=== PATIENT | male | born 1940 | race Caucasian/White ===

== ENCOUNTER 2024-06-30 01:33 | Emergency (ER) | payer MEDICARE, OTHER, SELFPAY ==
[2024-06-30 01:52] VITALS: BP 157/84; PULSE 88; RESP 16; TEMP 37; O2SAT 98; BMI 25.0
[2024-06-30] MEDS: ONDANSETRON 2 MG/ML inj 4 MG IVP (02:01)
--- NOTE | 2024-06-30 02:01 | ED.GENADULT ---
HPI - General Adult General Date Seen: 06/30/24 Chief complaint: Nausea/Vomiting Stated complaint: weak and nauseated Time Seen by Provider: 06/30/24 01:36 Source: patient Mode of arrival: ambulatory Limitations: no limitations History of Present Illness HPI narrative: Patient is an 84-year-old male who is here with his for evaluation of nausea which has been ongoing for 7-10 days. They just drove here from [place], they are moving from the [facility] to an apartment in [place]. He says the symptoms started around the same time that they left [place], he thought initially that it was just that they were on the road and warrant eating very well. His appetite is decreased, he has felt fatigued and generally weak as well. He has not had any vomiting. Denies any chest or abdominal pain. No diarrhea, black or bloody stools. His notes that neither of them have had good sleep for at least a couple of months and been under lot of stress, she wonders if that is contributing to his symptoms. He says he was going to make an appointment with someone in a clinic, though he has not established any way at this time, but decided tonight he just could not take another day of this nausea. He does have a history of heart disease, 1 stent he says probably 25 years ago. He has high cholesterol and hypertension, medications reviewed. He does not smoke or drink. He also notes that he has a history of low sodium, he knows that he is not supposed to drink too much water, so he has been trying to drink Gatorade rather than just water. His says his mouth is felt very dry. Related Data Home Medications ?Medication ?Instructions ?Recorded ?Confirmed amlodipine 5 mg tablet 5 mg PO DAILY 06/30/24 06/30/24 aspirin 81 mg capsule 81 mg PO DAILY 06/30/24 06/30/24 losartan 100 mg tablet (Cozaar) 100 mg PO DAILY 06/30/24 06/30/24 lovastatin 20 mg tablet 20 mg PO DAILY 06/30/24 06/30/24 Allergies Allergy/AdvReac Type Severity Reaction Status Date / Time latex Allergy rash Verified 06/30/24 01:55 Review of Systems Status of ROS: Reports: 10 or more systems reviewed and unremarkable except as noted in History and below [facility] Medical History Pacemaker ?Z95.0 - Presence of cardiac pacemaker (ICD-10) Surgical History H/O right coronary artery stent placement ?Z95.5 - Presence of coronary angioplasty implant and graft (ICD-10) Social History Smoking Status: Never smoker Do you use any of these nicotine containing products: None How often do you have a drink containing alcohol: never AUDIT-C Alcohol total score: 0 Non-prescribed substance use: denies use Exam Narrative: Exam Narrative: Vital signs as noted above. In general, an alert, well-appearing patient. Head: Normocephalic, atraumatic. Eyes: Pupils are equal reactive. Extraocular movements are full. Conjunctivae are normal. ENT: Mucous membranes are moist. Throat is normal. Neck: Supple without lymphadenopathy. Heart: Regular rate and rhythm. No murmur or rub. Lungs: Clear bilaterally. No increased work of breathing, crackles or wheezes. Abdomen: Soft and nontender. No organomegaly. Extremities: Well perfused. No edema. No calf tenderness. Pulses intact. Neurologic: Patient is alert and oriented to person and place. Speech is fluent. Face is symmetric. Moves all extremities equally. Affect: Normal. Skin: Warm and dry. Well perfused. Const: Vital Signs, click to edit/add: Vital Signs - 24 hr 06/30/24 01:52 Temperature 98.6 F Pulse Rate [Pulse Oximeter] 88 Respiratory Rate 16 Blood Pressure [Ri ght Upper Arm] 157/84 H Pulse Oximetry 98 Oxygen Delivery Me thod Room Air Documenting provider has reviewed patient's vital signs: yes Course Course ED Course: Patient presents with continuous nausea for over a week without vomiting, abdominal pain, changes in stools, shortness of breath or chest pain. Diagnostic considerations would include a cardiac etiology for these symptoms although it seems less likely given the continuous nature for over a week. Will evaluate for dehydration, metabolic derangement, infection. Would doubt an acute abdominal process such as bowel obstruction, diverticulitis, colitis, based on absence of symptoms. Will draw labs to assess for possible cholecystitis or pancreatitis although these also seem less likely with the absence of abdominal pain. Zofran for symptomatic relief. He feels improved after Zofran. Labs are notable for hemoglobin of 12.5, white count slightly low at 4.32, platelets are normal. He has a slight monocytosis. Sodium is low 126, he does not know what his baseline is but does tell me that his doctors away said it runs on the low side. His BUN and creatinine are normal, blood sugars 101, magnesium is 2. LFTs are normal, troponin is 0.01. CRP less than 0.5. Lipase is just a touch above normal at 308, of uncertain significance given the absence of any abdominal pain. COVID flu and RSV are negative. I have reviewed all this with the patient and his . I think it is reasonable to let him go home, I do think we should try and raise his sodium a bit, we talked about fluid restriction and I would also have him use salt tablets in the short term. Sodium should be rechecked in clinic early next week. Return any time for worsening weakness, new symptoms such as abdominal pain, vomiting, fevers. Reviewed that if symptoms are persistent as sodium normalizes that additional evaluation as an outpatient may be needed. Vital Signs Vital signs: Initial Vital Signs Temperature 98.6 F 06/30/24 01:52 Temperature Source Temporal Artery Scan 06/30/24 01:52 Pulse Rate 88 06/30/24 01:52 Respiratory Rate 16 06/30/24 01:52 Blood Pressure 157/84 H 06/30/24 01:52 Blood Pressure Mean 108 H 06/30/24 01:52 Blood Pressure Position Sitting 06/30/24 01:52 Pulse Oximetry 98 06/30/24 01:52 Oxygen Delivery Method Room Air 06/30/24 01:52 Vital Signs Temperature 98.6 F 06/30/24 01:52 Pulse Rate 88 06/30/24 01:52 Respiratory Rate 16 06/30/24 01:52 Blood Pressure 157/84 H 06/30/24 01:52 Pulse Oximetry 98 06/30/24 01:52 Oxygen Delivery Method Room Air 06/30/24 01:52 Temperature 98.6 F 06/30/24 01:52 Pulse Rate 88 06/30/24 01:52 Respiratory Rate 16 06/30/24 01:52 Blood Pressure 157/84 H 06/30/24 01:52 Pulse Oximetry 98 06/30/24 01:52 Oxygen Delivery Method Room Air 06/30/24 01:52 Medications Administered Medications: Discontinued Medications Generic Name Dose Route Start Last Admin Trade Name Dannielle PRN Reason Stop Dose Admin Ondansetron HCl 4 mg 06/30/24 01:56 06/30/24 02:01 Ondansetron 2 Mg/Ml Inj IVP 06/30/24 01:57 4 mg ONCE ONE Administration Medical Decision Making Lab Data Labs: Lab Results 06/30/24 06/30/24 06/30/24 Range/Units 01:56 01:57 02:04 WBC 4.32 L (4.50-11.00) K/uL RBC 3.82 L (4.30-5.90) m/uL Hgb 12.4 L (13.5-17.5) gm/dL Hct 35.4 L (37.0-53.0) % MCV 93 (80-100) fL MCH 33 (26-34) pg MCHC 35 (32-36) gm/dL RDW Coeff of Swapna 12.1 (11.5-15.5) % Plt Count 253 (140-440) K/uL Neut % (Auto) 47.7 (42.0-72.0) % Lymph % (Auto) 36.1 (20-44) % [place] % (Auto) 12.7 H (0.0-11.0) % Eos % (Auto) 2.8 (0.0-7.0) % Baso % (Auto) 0.7 (0.0-3.0) % Neut # (Auto) 2.10 (1.7-7.0) K/uL Lymph # (Auto) 1.60 (0.90-2.90) K/uL [place] # (Auto) 0.50 (0.00-0.90) K/UL Eos # (Auto) 0.10 (0.00-0.50) K/uL Baso # (Auto) 0.00 (0.00-0.30) K/uL Abs Immat Gran (auto) 0.00 (0.00-0.30) K/uL Imm/Tot Granulo (auto) 0.0 % Sodium 126 L (135-149) mmol/L Potassium 3.5 L (3.6-5.1) mmol/L Chloride 96 (96-114) mmol/L Carbon Dioxide 20 (20-32) mmol/L Anion Gap 10 (7-15) mEq/L BUN 9 (7-30) mg/dL Creatinine 0.6 (0.5-1.5) mg/dL Estimated Creat Clear 48.69 Estimated GFR 96 ml/min Glucose 101 (60-115) mg/dL Calcium 9.3 (8.4-10.6) mg/dL Magnesium 2.0 Cancelled (1.5-2.6) mg/dL Total Bilirubin 0.7 (0.1-1.5) mg/dL Direct Bilirubin 0.2 (0.0-0.5) mg/dL AST 28 (12-35) U/L ALT 18 (4-50) U/L Alkaline Phosphatase 70 (40-150) U/L Troponin I 0.01 Cancelled (0.01-0.04) ng/mL C-Reactive Protein < 0.5 L (0.5-1.0) mg/dL Total Protein 6.8 (6.0-8.3) g/dL Albumin 4.1 (3.3-5.0) g/dL Lipase 308 H (23-300) U/L SARS-CoV-2 (PCR) Negative SARS-CoV-2 (Negative) Influenza Type A (PCR) Negative PCR FLU A (Negative) Influenza Type B (PCR) Negative PCR FLU B (Negative) RSV (PCR) Negative PCR RSV (Negative) SARS-CoV-2 Ag (Rapid) Negative (Negative) Discharge Plan Discharge Clinical Impression: Nausea, Hyponatremia Patient Disposition: Home, Self-Care Condition: Improved Instructions: Hyponatremia (ED) Additional Instructions: Zofran if needed for nausea. I would recommend getting some salt tablets at the pharmacy and supplementing your diet with these over the next few days. Your sodium should be rechecked at 1 of the local clinics early next week. If you are feeling worse at any time, developed vomiting, abdominal pain, fevers, return to the ER. Prescriptions: No Action aspirin 81 mg capsule 81 mg PO DAILY lovastatin 20 mg tablet 20 mg PO DAILY losartan [Cozaar] 100 mg tablet 100 mg PO DAILY amlodipine 5 mg tablet 5 mg PO DAILY Follow Up/Referrals: Provider,Not a Local [Primary Care Provider] - Stand Alone Forms: [employer] [facility] [employer] Info Instructions
[2024-06-30 02:13] LABS: Basophils Percent Auto 0.7 % (0.0-3.0); Eosinophils Percent Auto 2.8 % (0.0-7.0); Hematocrit 35.4 % (37.0-53.0); Hemoglobin* 12.4 gm/dL (13.5-17.5); Lymphocytes Percent Auto 36.1 % (20-44); Mean Corpuscular HGB Conc 35 gm/dL (32-36); Mean Corpuscular Hemoglobin 33 pg (26-34); Mean Corpuscular Volume 93 fL (80-100); Monocytes Percent Auto 12.7 % (0.0-11.0); Neutrophils Percent Auto 47.7 % (42.0-72.0); Platelet Count* 253 K/uL (140-440); RDW Coefficient of Variation % 12.1 % (11.5-15.5); Red Blood Count 3.82 m/uL (4.30-5.90); White Blood Count* 4.32 K/uL (4.50-11.00)
[2024-06-30 02:18] LABS: Slide Review Reflex No
[2024-06-30 02:30] LABS: Albumin* 4.1 g/dL (3.3-5.0); Chloride* 96 mmol/L (96-114); Sodium* 126 mmol/L (135-149)
[2024-06-30 02:31] LABS: Potassium* 3.5 mmol/L (3.6-5.1)
[2024-06-30 02:32] LABS: Creatinine* 0.6 mg/dL (0.5-1.5); Est. Creatinine Clearance* 48.69; Estimated Glomerular Filt Rate 96 ml/min
[2024-06-30 02:33] LABS: SARS Antigen* Negative (Negative)
[2024-06-30 02:33] LABS: Anion Gap 10 mEq/L (7-15); Aspartate Amino Transferase* 28 U/L (12-35); Bilirubin Direct* 0.2 mg/dL (0.0-0.5); Bilirubin Total* 0.7 mg/dL (0.1-1.5); Carbon Dioxide* 20 mmol/L (20-32); Total Protein* 6.8 g/dL (6.0-8.3)
[2024-06-30 02:34] LABS: Alanine Aminotransferase* 18 U/L (4-50); Alkaline Phosphatase* 70 U/L (40-150); Blood Urea Nitrogen* 9 mg/dL (7-30); Calcium* 9.3 mg/dL (8.4-10.6); Glucose* 101 mg/dL (60-115); Lipase* 308 U/L (23-300)
[2024-06-30 02:45] LABS: Troponin I* 0.01 ng/mL (0.01-0.04)
[2024-06-30 02:46] LABS: C Reactive Protein* < 0.5 mg/dL (0.5-1.0)
[2024-06-30 02:49] LABS: PCR FLU A Negative PCR FLU A (Negative); PCR FLU B Negative PCR FLU B (Negative); PCR RSV Negative PCR RSV (Negative); SARS PCR* Negative SARS-CoV-2 (Negative)
[2024-06-30 03:03] VITALS: BP 145/78; PULSE 82; RESP 16; TEMP 37; O2SAT 98
== END 2024-06-30 03:06 | disposition home or self-care (01) ==
PROVIDERS: Emergency Provider Emergency Medicine
DX: R11.0 Nausea (principal); E87.1 Hypo-osmolality and hyponatremia
CPT/HCPCS: 36415; 80048; 80076; 83690; 83735; 84484; 85025; 86140; 87426; 87631; 93005; 96374; 99284; J2405

== ENCOUNTER 2024-08-24 10:57 | Emergency (ER) | payer MEDICARE, OTHER, SELFPAY ==
[2024-08-24] VITALS (17 sets, daily range): BP systolic 130–148; BP diastolic 70–83; PULSE 73–104; RESP 18; TEMP 36.6; O2SAT 95–97; BMI 24.9
--- NOTE | 2024-08-24 11:53 | CRLHL7_ITS ---
For Patients: As a result of the Century Cures Act, medical imaging exams and procedure reports are released immediately into your electronic medical record. You may view this report before your referring provider. If you have questions, please contact your health care provider. INDICATION: Dizziness. COMPARISON: None. TECHNIQUE: CT of the brain / head without intravenous contrast. Multiplanar axial, coronal, and sagittal reformats were reconstructed. FINDINGS: No intracranial hemorrhage. No acute or subacute cortically based infarct. Similar density at both carotid terminus is and proximal MCAs. Scattered white matter hypodensities may be related to chronic microvascular ischemia. No mass or mass effect. Normal ventricles. No skull fractures. No worrisome focal bone lesion. The mastoids and middle ears are well aerated. Mucosal thickening in both maxillary sinuses. IMPRESSION: No acute appearing intracranial findings. Scattered very mild white matter hypodensities in a pattern typical of microvascular ischemia. Please note that all CT scans at this facility use dose modulation, iterative reconstruction, and/or weight-based dosing when appropriate to reduce radiation dose to as low as reasonably achievable. Dictated by Maria Del Rosario Cage MD @ 08/24/2024 1:56:44 PM (Electronically Signed)
--- NOTE | 2024-08-24 11:53 | CRLHL7_ITS ---
For Patients: As a result of the Century Cures Act, medical imaging exams and procedure reports are released immediately into your electronic medical record. You may view this report before your referring provider. If you have questions, please contact your health care provider. INDICATION: Abdominal pain, nausea, constipation. TECHNIQUE: CT abdomen and pelvis acquired with 71 cc Omnipaque 370 IV contrast. COMPARISON: None. FINDINGS: Lower chest: Minimal left basilar atelectasis. Liver: Normal in size and attenuation. Small hypoattenuating liver lesion in the right hepatic lobe , too small to characterize. Gallbladder and bile ducts: Cholelithiasis without acute cholecystitis. No biliary duct dilatation. Pancreas: No mass or inflammation. Spleen: Normal in size. No masses. Adrenal glands: No suspicious mass. Kidneys: Bilateral kidneys are normal in size with symmetric enhancement. No nephrolithiasis or hydronephrosis. GI tract: No findings of bowel obstruction. Normal appendix. Severe fecal retention throughout the large bowel loops. No localized wall thickening or inflammation. Scattered colonic diverticulosis without diverticulitis. Vasculature: Abdominal aorta is normal in caliber with mild atherosclerotic disease. Lymph nodes: No lymphadenopathy. Peritoneum/Abdominal Wall: No free air or significant free fluid. Postsurgical changes of anterior abdominal wall, likely hernia repair Pelvis: Prostatomegaly. Bones: Moderate multilevel degenerative changes of the spine. No other wedging compression fracture. IMPRESSION: Severe fecal retention. No findings of bowel obstruction or inflammatory changes. Scattered colonic diverticulosis. Please note that all CT scans at this facility use dose modulation, iterative reconstruction, and/or weight-based dosing when appropriate to reduce radiation dose to as low as reasonably achievable. Dictated by Nba Branham MD @ 08/24/2024 2:06:48 PM (Electronically Signed)
[2024-08-24 12:19] LABS: Basophils Absolute Auto 0.02 K/uL (0.00-0.30); Basophils Percent Auto 0.4 % (0.0-3.0); Eosinophils Absolute Auto 0.06 K/uL (0.00-0.50); Eosinophils Percent Auto 1.3 % (0.0-7.0); Hematocrit 39.6 % (37.0-53.0); Hemoglobin* 13.3 gm/dL (13.5-17.5); Immature Granulocytes Abs Auto 0.03 K/uL (0.00-0.30); Immature Granulocytes Pct Auto 0.7 %; Lymphocytes Percent Auto 18.9 % (20-44); Mean Corpuscular HGB Conc 34 gm/dL (32-36); Mean Corpuscular Hemoglobin 32 pg (26-34); Mean Corpuscular Volume 97 fL (80-100); Monocytes Percent Auto 7.5 % (0.0-11.0); Neutrophils Absolute Auto 3.25 K/uL (1.7-7.0); Neutrophils Percent Auto 71.2 % (42.0-72.0); Platelet Count* 245 K/uL (140-440); RDW Coefficient of Variation % 12.1 % (11.5-15.5); White Blood Count* 4.56 K/uL (4.50-11.00)
[2024-08-24 12:24] LABS: Slide Review Reflex No
[2024-08-24 12:26] LABS: Chloride* 100 mmol/L (96-114)
[2024-08-24 12:27] LABS: Potassium* 3.8 mmol/L (3.6-5.1); Sodium* 131 mmol/L (135-149)
[2024-08-24 12:29] LABS: Anion Gap 8 mEq/L (7-15); Aspartate Amino Transferase* 21 U/L (12-35); Bilirubin Total* 0.6 mg/dL (0.1-1.5); Carbon Dioxide* 23 mmol/L (20-32); Creatinine* 0.7 mg/dL (0.5-1.5); Est. Creatinine Clearance* 46.87; Estimated Glomerular Filt Rate 91 ml/min; Magnesium* 2.2 mg/dL (1.5-2.6)
[2024-08-24 12:30] LABS: Alanine Aminotransferase* 16 U/L (4-50); Alkaline Phosphatase* 52 U/L (40-150); Blood Urea Nitrogen* 13 mg/dL (7-30); Calcium* 9.6 mg/dL (8.4-10.6); Glucose* 169 mg/dL (60-115); Total Protein* 6.8 g/dL (6.0-8.3)
--- NOTE | 2024-08-24 12:54 | ED_ITS ---
HPI - General Adult General Date Seen: 08/24/24 Chief complaint: Dizziness/Vertigo Stated complaint: dizzy/faint/weak Time Seen by Provider: 08/24/24 11:37 Source: patient Mode of arrival: ambulatory Limitations: no limitations History of Present Illness HPI narrative: Patient is a an 84-year-old male presenting to emergency department after episode of dizziness and lightheadedness that occurred this morning. States this is a chronic issue for him but seemed much worse this morning. Has since resolved and now back to his baseline. States that time was feeling very woozy like he was going to pass out. Denies feeling like the room was spinning. Also has been having issues with chronic nausea for the past 2 months. States symptoms started while they were on their drive from [place] to move to [place]. Has a work with his primary care provider for it and has been using home nausea medicine without much help. Is not had any associated vomiting. His primary care provider has talked about doing of EGD. Has not had any other imaging done yet. Denies fevers, chills, chest pain, shortness of breath, weakness, numbness, headache, vision changes. Does state he has a history of a low sodium and was concerned it could be low again. Is also complaining about constipation. States he usually goes every morning but now has not gone for 3 days. Related Data Home Medications ?Medication ?Instructions ?Recorded ?Confirmed amlodipine 5 mg tablet 5 mg PO DAILY 06/30/24 08/24/24 aspirin 81 mg capsule 81 mg PO DAILY 06/30/24 08/24/24 losartan 100 mg tablet (Cozaar) 100 mg PO DAILY 06/30/24 08/24/24 lovastatin 20 mg tablet 20 mg PO DAILY 06/30/24 08/24/24 azelastine 137 mcg (0.1 %) nasal 1 spray intranasal BID 08/24/24 08/24/24 spray ipratropium bromide 21 mcg (0.03 2 spray intranasal 3XD 08/24/24 08/24/24 %) nasal spray omeprazole 20 mg capsule,delayed 20 mg PO DAILY 08/24/24 08/24/24 release ondansetron 4 mg disintegrating 4 mg PO Q8H PRN nausea/vomiting 08/24/24 08/24/24 tablet polyethylene glycol 3350 17 g PO 08/24/24 gram/dose oral powder travoprost 0.004 % eye drops drp ophthalmic (eye) 08/24/24 Allergies Allergy/AdvReac Type Severity Reaction Status Date / Time latex Allergy rash Verified 08/24/24 13:41 Review of Systems Status of ROS: Reports: 10 or more systems reviewed and unremarkable except as noted in History and below [facility] Medical History Pacemaker ?Z95.0 - Presence of cardiac pacemaker (ICD-10) Surgical History H/O right coronary artery stent placement ?Z95.5 - Presence of coronary angioplasty implant and graft (ICD-10) Social History Smoking Status: Never smoker Do you use any of these nicotine containing products: None How often do you have a drink containing alcohol: never AUDIT-C Alcohol total score: 0 Non-prescribed substance use: denies use Exam Narrative: Exam Narrative: Const: Well-nourished, Well-developed, in mild distress Eyes: PERRL, no conjunctival injection, and symmetrical lids HENT: Atraumatic external nose and ears. Moist mucous membranes. Neck: Symmetric, trachea midline, No thyromegaly. CVS: RRR, No murmurs or gallops. Peripheral pulses 2+ and equal in all extremities RESP: Unlabored respiratory effort. Clear to auscultation bilaterally. GI: Nontender/Nondistended, No rebound or guarding. MSK:Extremities w/o deformity, Normal Active ROM Skin: Warm, Dry. No rashes or lesions. Neuro: Normal Muscle tone, No focal neurological deficits. Psych: Awake, Alert, & Oriented x3. Appropriate mood and affect. Const: Vital Signs, click to edit/add: Vital Signs - 24 hr 08/24/24 11:27 08/24/24 11:38 08/24/24 11:45 Temperature 97.8 F Pulse Rate 86 85 Pulse Rate [Pulse Oximeter] 95 Respiratory Rate 18 Blood Pressure Blood Pressure [Le ft Upper Arm] 148/74 H Pulse Oximetry 97 96 97 Oxygen Delivery Me thod Room Air 08/24/24 12:00 08/24/24 12:02 08/24/24 12:15 Temperature Pulse Rate 87 87 78 Pulse Rate [Pulse Oximeter] Respiratory Rate Blood Pressure 142/73 H Blood Pressure [Le ft Upper Arm] Pulse Oximetry 97 97 97 Oxygen Delivery Me thod 08/24/24 12:30 08/24/24 12:32 08/24/24 12:45 Temperature Pulse Rate 77 73 78 Pulse Rate [Pulse Oximeter] Respiratory Rate Blood Pressure 130/70 Blood Pressure [Le ft Upper Arm] Pulse Oximetry 96 95 95 Oxygen Delivery Me thod 08/24/24 13:00 08/24/24 13:02 08/24/24 13:15 Temperature Pulse Rate 78 79 87 Pulse Rate [Pulse Oximeter] Respiratory Rate Blood Pressure 132/77 Blood Pressure [Le ft Upper Arm] Pulse Oximetry 97 97 97 Oxygen Delivery Me thod 08/24/24 13:33 08/24/24 13:34 08/24/24 13:45 Temperature Pulse Rate 104 H 99 77 Pulse Rate [Pulse Oximeter] Respiratory Rate Blood Pressure 140/83 H Blood Pressure [Le ft Upper Arm] Pulse Oximetry 95 97 96 Oxygen Delivery Me thod 08/24/24 14:00 Temperature Pulse Rate 74 Pulse Rate [Pulse Oximeter] Respiratory Rate Blood Pressure Blood Pressure [Le ft Upper Arm] Pulse Oximetry 97 Oxygen Delivery Me thod Course Vital Signs Vital signs: Initial Vital Signs Temperature 97.8 F 08/24/24 11:27 Temperature Source Temporal Artery Scan 08/24/24 11:27 Pulse Rate 95 08/24/24 11:27 Respiratory Rate 18 08/24/24 11:27 Blood Pressure 148/74 H 08/24/24 11:27 Blood Pressure Mean 98 08/24/24 11:27 Blood Pressure Position High-Fowlers 08/24/24 11:27 Pulse Oximetry 97 08/24/24 11:27 Oxygen Delivery Method Room Air 08/24/24 11:27 Vital Signs Temperature 97.8 F 08/24/24 11:27 Pulse Rate 95 08/24/24 11:27 Respiratory Rate 18 08/24/24 11:27 Blood Pressure 148/74 H 08/24/24 11:27 Pulse Oximetry 97 08/24/24 11:27 Oxygen Delivery Method Room Air 08/24/24 11:27 Temperature 97.8 F 08/24/24 11:27 Pulse Rate 74 08/24/24 14:00 Respiratory Rate 18 08/24/24 11:27 Blood Pressure 140/83 H 08/24/24 13:33 Pulse Oximetry 97 08/24/24 14:00 Oxygen Delivery Method Room Air 08/24/24 11:27 Medical Decision Making MDM Narrative Medical decision making narrative: Patient is an 84-year-old male presenting for lightheadedness. Considering he is also having chronic nausea I will do a head CT as there is could be is signs of intracranial abnormality. Will also order a CBC, CMP, magnesium, EKG, troponin to rule out any cardiac issues or electrolyte issues. For his nausea and constipation order CT scan with IV contrast. Lab work shows no concerning findings. His sodium slightly low at 131 by unlikely to be causing his symptoms. EKG and troponin showed no concerning findings. Do not believe repeat troponin is necessary as this lightheadedness occurred early this morning and is now back to his baseline. I do not believe further evaluation is necessary. He is ambulating well. On my review vital signs are stable throughout time in in the emergency department. Oximetry stayed in the mid to high 90s. sign fabricator showed no concerning arrhythmias. Head CT shows no acute concerning abnormalities. CT scan abdomen pelvis shows severe constipation. I spoke to the patient about this and his . I will give him a bowel cleanout regimen. Also informed him to start taking stool softeners regularly after that. He is agreeable to this plan. Lab Data Labs: Lab Results 08/24/24 08/24/24 Range/Units 11:54 12:05 WBC 4.56 (4.50-11.00) K/uL RBC 4.10 L (4.30-5.90) m/uL Hgb 13.3 L (13.5-17.5) gm/dL Hct 39.6 (37.0-53.0) % MCV 97 (80-100) fL MCH 32 (26-34) pg MCHC 34 (32-36) gm/dL RDW Coeff of Swapna 12.1 (11.5-15.5) % Plt Count 245 (140-440) K/uL Neut % (Auto) 71.2 (42.0-72.0) % Lymph % (Auto) 18.9 L (20-44) % [place] % (Auto) 7.5 (0.0-11.0) % Eos % (Auto) 1.3 (0.0-7.0) % Baso % (Auto) 0.4 (0.0-3.0) % Neut # (Auto) 3.25 (1.7-7.0) K/uL Lymph # (Auto) 0.90 (0.90-2.90) K/uL [place] # (Auto) 0.30 (0.00-0.90) K/UL Eos # (Auto) 0.06 (0.00-0.50) K/uL Baso # (Auto) 0.02 (0.00-0.30) K/uL Abs Immat Gran (auto) 0.03 (0.00-0.30) K/uL Imm/Tot Granulo (auto) 0.7 % Sodium 131 L (135-149) mmol/L Potassium 3.8 (3.6-5.1) mmol/L Chloride 100 (96-114) mmol/L Carbon Dioxide 23 (20-32) mmol/L Anion Gap 8 (7-15) mEq/L BUN 13 (7-30) mg/dL Creatinine 0.7 (0.5-1.5) mg/dL Estimated Creat Clear 46.87 Estimated GFR 91 ml/min Glucose 169 H (60-115) mg/dL Calcium 9.6 (8.4-10.6) mg/dL Magnesium 2.2 (1.5-2.6) mg/dL Total Bilirubin 0.6 (0.1-1.5) mg/dL AST 21 (12-35) U/L ALT 16 (4-50) U/L Alkaline Phosphatase 52 (40-150) U/L Total Protein 6.8 (6.0-8.3) g/dL Albumin 4.0 (3.3-5.0) g/dL POC Troponin I 0.00 L (0.01-0.04) ng/ml Imaging Data CT scan - head: Attestation: I have reviewed the pertinent imaging results. Radiologist's impression: No acute appearing intracranial findings. Scattered very mild white matter hypodensities in a pattern typical of microvascular ischemia. Please note that all CT scans at this facility use dose modulation, iterative reconstruction, and/or weight-based dosing when appropriate to reduce radiation dose to as low as reasonably achievable. Dictated by Maria Del Rosario Cage MD @ 08/24/2024 1:56:44 PM (Electronically Signed) CT scan abdomen pelvis: Radiologist's impression: Severe fecal retention. No findings of bowel obstruction or inflammatory changes. Scattered colonic diverticulosis. Please note that all CT scans at this facility use dose modulation, iterative reconstruction, and/or weight-based dosing when appropriate to reduce radiation dose to as low as reasonably achievable. Dictated by Nba Branham MD @ 08/24/2024 2:06:48 PM ECG Data Attestation: I personally reviewed and interpreted this ECG as follows: Prior ECG tracings: available for review Interpretation: Ventricular paced rhythm with a rate of he 2 beats per minute, normal intervals, normal axis, no ST or T-wave abnormalities. Appears similar previous EKG on file. Discharge Plan Discharge Clinical Impression: Constipation Qualifiers: Constipation type: unspecified constipation type Qualified Code(s): K59.00 - Constipation, unspecified Patient Disposition: Home, Self-Care Condition: Stable Instructions: Constipation (DC) Additional Instructions: Follow the bowel cleanout regimen provided. Continue to take stool softeners at home until he began to have regular bowel movements. ?2 - Bisacodyl tablets (Dulcolax? laxative NOT Dulcolax? stool softener) each tablet contains 5 mg of bisacodyl ?1 - 8.3 ounce bottle of Polyethylene Glycol (PEG) 3350 Powder (MiraLAX, SmoothLAX, ClearLAX or generic equivalent) 64 oz. Gatorade? (No red colored flavors) Regular Gatorade?, Gatorade G2?, Powerade?, Powerade Zero?, Pedialyte or Propel?, Liquid IV, and other electrolyte beverages are acceptable. Red flavors are not allowed; all other colors (yellow, green, orange, purple, blue) are okay. It is also okay to buy two 2.12 oz packets of powdered Gatorade that can be mixed with water to a total volume of 64 oz of liquid. ? Simethicone 80 mg or 125 mg tablets, chewables, or softgels -Simethicone is available over the counter in a variety of forms and dosages. Capsules, chewable tablets, and liquid are all acceptable forms. - If you are buying 125 mg tablets, purchase enough simethicone to take 2 tablets. -If you are buying 80 mg tablets, purchase enough to take 3 tablets. ?1 - 10 oz. bottle Magnesium Citrate (No red colored flavors) It is also okay for you to use a 0.5 ounce package of powdered magnesium citrate (17 grams) mixed with 10 ounces of water. ?Tomorrow begin Clear Liquid Diet (clear liquids include things you can see through). Examples of a clear liquid diet include: water, clear broth or bouillon (gluten free options available), Gatorade, Pedialyte or Powerade, carbonated and non-carbonated soft drinks (Sprite, 7-Up, Gingerale), strained fruit juices without pulp (apple, white grape, white cranberry), Jell-O, popsicles, and up to one cup of black coffee or tea (no milk or cream) each day. The following are not allowed on a clear liquid diet: red liquids, alcoholic beverages, dairy products, protein shakes, cream broths, juice with pulp, products containing oil and chewing tobacco. For additional details on following a clear liquid diet, please see https://www.[employer].com/conditions/hqiiw-dfvfkl-lqoq ?Take 2 Bisacodyl (Dulcolax) tablets ?4-6 hour later Drink Miralax ? Gatorade preparation Mix 1 bottle of Miralax with 64 oz. of Gatorade in a large pitcher. Drink 1 - 8 oz. glass of the Miralax/Gatorade solution. Continue drinking 1 - 8 oz. glass every 15 minutes thereafter until the mixture is gone With the last glass of Miralax ? Gatorade solution: take 240-250 mg of simethicone. -Simethicone is available over the counter in a variety of forms and dosages. Capsules, chewable tablets, and liquid are all acceptable forms. -Take enough of the medication to total between 240-250 mg. For example, if you have -125 mg chewable tablets, take 2 tablets to total 250 mg. -80 mg tablets, take 3 tablets to total 240 mg. ?The next day take 10 ounces of magnesium citrate Prescriptions: No Action aspirin 81 mg capsule 81 mg PO DAILY lovastatin 20 mg tablet 20 mg PO DAILY losartan [Cozaar] 100 mg tablet 100 mg PO DAILY amlodipine 5 mg tablet 5 mg PO DAILY travoprost 0.004 % drops ophthalmic (eye) omeprazole 20 mg capsule,delayed release(DR/EC) 20 mg PO DAILY azelastine 137 mcg (0.1 %) spray,non-aerosol 1 spray INTRANASAL BID polyethylene glycol 3350 17 gram/dose powder PO ondansetron 4 mg tablet,disintegrating 4 mg PO Q8H PRN (Reason: nausea/vomiting) ipratropium bromide 21 mcg (0.03 %) spray,non-aerosol 2 spray INTRANASAL 3XD Follow Up/Referrals: NASRIN BUCKLEY DO [Primary Care Provider] - Stand Alone Forms: [facility] Info Instructions
== END 2024-08-24 14:36 | disposition home or self-care (01) ==
PROVIDERS: Emergency Provider Student in an Organized Health Care Education/Training Program; PCP Student in an Organized Health Care Education/Training Program
DX: R42 Dizziness and giddiness (principal); K59.00 Constipation, unspecified
CPT/HCPCS: 36415; 70450; 74177; 80053; 83735; 84484; 85025; 93005; 99284; 99285; Q9967

== ENCOUNTER 2024-08-31 12:44 | Outpatient (CLI) | payer MEDICARE, OTHER, SELFPAY ==
--- NOTE | 2024-08-31 14:22 | P.ANES_ITS ---
Anesthesia Charges Start Date/Time Anesthesia Start Date: 08/31/24 Anesthesia Start Time: 14:01 Stop Date/Time Anesthesia Stop Date: 08/31/24 Anesthesia Stop Time: 14:20 Summary Extremes of Age - Over 70 or under 1: RISK MANAGEMENT DIRECTOR
== END 2024-08-31 12:45 | disposition home or self-care (01) ==
LOC: OP CLINIC 12:45
PROVIDERS: PCP Student in an Organized Health Care Education/Training Program; Visit Provider Internal Medicine Gastroenterology
DX: R11.2 Nausea with vomiting, unspecified (principal)
CPT/HCPCS: 00731; 43239; 88305; 99100; J2704; J3010

== ENCOUNTER 2025-03-04 10:45 | Emergency (ER) | payer OTHER, SELFPAY ==
[2025-03-04] VITALS (11 sets, daily range): BP systolic 140–152; BP diastolic 74–88; PULSE 71–79; RESP 9–21; TEMP 36.4; O2SAT 96–98; BMI 22.8
--- OUTSIDE RECORDS SUMMARY | 2025-03-04 10:50 | XMS_ITS | Clinical Summary ---
Author Organization [facility] Address [address] [place], [place] [address]. [place] [address] Care Team Providers Care Wholesale Representative Name Role Phone No Ref-Primary, Physician Primary Care Provider Social History Tobacco Use Types Packs/Day Years Used Date Smoking Tobacco: Never Assessed Sex and Gender Information Value Date Recorded Sex Assigned at Not on file Legal Sex Male 3:37 PM CDT Gender Identity Not on file Sexual Orientation Not on file Plan of Treatment Health Maintenance Due Date Last Done Comments ADVANCE CARE PLANNING 1941 ANNUAL REVIEW OF HM ORDERS 1941 FALL RISK ASSESSMENT 2006 PNEUMOCOCCAL VACCINE 50+ YEARS (2 of 2 - PPSV23) 09/02/2015 09/02/2014 RSV VACCINE (1 - 1-dose 75+ series) 2016 DTAP/TDAP/TD VACCINE (2 - Td or Tdap) 08/29/2022 08/29/2012, 01/29/1991 PHQ-2 (once per calendar year) 2024 COVID-19 VACCINE (2 - 2023-2 5 season) 2025 07/23/2024 INFLUENZA VACCINE (#1) 2025 , 06/15/2004 MEDICARE ANNUAL WELLNESS VISIT 08/01/2025 08/01/2024 ZOSTER VACCINE Completed 04/29/2019, 02/26/2019 HPV VACCINE Aged Out No longer eligi ble based on patient's age to complete this topic MENINGITIS VACCINE Aged Out No longer eligible based on patient's age to complete this topic Insurance [employer] Member Subscriber Plan / Payer (Ef fective 2024-Present) Name:Arnaldo Chappell Relation to Subscriber:Self Name:Arnaldo Chappell Payer ID:[id number] (NAIC) Type:[employer] Address: [address] [place] [id number] [employer] Care Teams Wholesale Representative Relationship Specialty Start Date End Date No Ref-Primary, Physician PCP - General 11/27/24
--- OUTSIDE RECORDS SUMMARY | 2025-03-04 10:50 | XMS_ITS | Clinical Summary ---
Author Organization [email or web address] Address [address] [place] [id number] Care Team Providers Care Robotics Engineer Name Role Phone Kang Gutierrez DO Primary Care Provider [phone] Allergies Active Allergy Reactions Criticality Noted Date Comments Latex Rash Medium 07/10/2024 Medications amLODIPine (NORVASC) 5 mg tablet Take 1 Tablet (5 mg) by mouth once daily. 07/02/20 24 Active losartan (COZAAR) 100 mg tablet Take 1 Tablet (100 mg) by mouth once daily. 07/02/20 24 Active aspirin chewable 81 mg chewable tablet Chew 1 Tablet (81 mg) by mouth once daily with a meal. 07/02/20 24 Active travoprost 0.004% (TRAVATAN Z) 0.004 % ophthalmic solution 1 Drop at bedtime. Active nystatin 100,000 unit/g ointment Apply topically to affected area(s) continuous as needed. Active clobetasol (TEMOVATE) 0.05 % ointment 10/10/19 24 Active polyethylene glycoL (MIRALAX) 17 gram/scoop powderIndicati ons:Constipati on, acute Mix 1 scoop (17 g) in liquid then take by mouth once daily if needed for Constipation. 510 g 3 08/01/20 24 Active ondansetron (ZOFRAN) 8 mg tabletIndicati ons:Nausea Take 1 Tablet (8 mg) by mouth every 8 hours if needed for Nausea/Vomiti ng. 30 Tablet 08/28/20 24 Active sennosides (SENNA) 8.6 mg tabletIndicati ons:Constipati on, acute Take 1 Tablet (8.6 mg) by mouth two times daily. 180 Tablet 3 08/30/19 25 Active promethazine (PHENERGAN) 25 mg tabletIndicati ons:Nausea and vomiting, unspecified vomiting type TAKE 1 TABLET (25 MG) BY MOUTH EVERY 6 HOURS IF NEEDED FOR NAUSEA/VOMITI NG. 30 Tablet 11/13/19 25 Active nitroglycerin 0.4 mg sublingual tabletIndicati ons:CAD in [place] artery,Bicuspi d aortic valve Place 1 Tablet (0.4 mg) under the tongue every 5 minutes if needed for Chest Pain. Up to 3 tablets in 15 minutes. 20 Tablet 11/21/19 25 Active gabapentin 100 mg capsuleIndicat ions:Nausea and vomiting, unspecified vomiting type TAKE 1 CAPSULE (100 MG) BY MOUTH FOUR TIMES DAILY. 120 Capsule 02/22/20 25 Active lovastatin 20 mg tabletIndicati ons:CAD in [place] artery Take 1 Tablet (20 mg) by mouth at bedtime. 90 Tablet 3 02/26/20 25 Active lovastatin (MEVACOR) 20 mg tablet Take 1 Tablet (20 mg) by mouth at bedtime. 07/02/20 24 025 Discontinued(Re order (E-cancel not sent)) gabapentin 100 mg capsuleIndicat ions:Nausea and vomiting, unspecified vomiting type TAKE 1 CAPSULE (100 MG) BY MOUTH FOUR TIMES DAILY. 120 Capsule 01/23/20 25 025 Discontinued Active Problems Problem Noted Date Diagnosed Date Primary hypertension 07/02/2024 CAD in [place] artery 07/02/2024 Overview (07/02/2024): 1 stent about 25 years ago. Right coronary artery stent. HLD (hyperlipidemia) 07/02/2024 Pacemaker 07/02/2024 Bradycardia 07/02/2024 Encounters Date Type Department Care Team Description 02/20/2025 Refill [facility] [address] [place] [address] Kang Gutierrez, Refill Request (Gabapentin) 01/21/2025 Refill [facility] [address] [place] [address] Kang Gutierrez DO Refill Request (Gabapentin) 12/21/2024 Refill [facility] [address] [place] [address] Kang Gutierrez, DO Refill Request (Gabapentin) from Last 3 Months Immunizations Immunization Administration Dates Next Due COVID-19 VACCINE SPIKEVAX (M ODERNA 50MCG/0.5ML) 12YO+ PFS 07/23/2024 Influenza, IIV3 (Age >=3 years) 06/15/2004 Influenza, Inactivated AIIV4 (Age 65+ Years) Preserv Free 05/06/2024 Pneumococcal conj 13-Valent (Prevnar 13) 015 RSV, Bivalent Vaccine Recons tituted (Abrysvo 120MCG/0.5mL) 06/24/2023 Td (Age >=7 Years) 01/29/1991 Tdap 08/29/2012 Zoster (Shingrix-RZV, recombinant) 04/29/2019, Social History Tobacco Use Types Packs/Day Years Used Date Smoking Tobacco: Never Smokeless Tobacco: Never Tobacco Cessation:Counseling Given: Yes Alcohol Use Standard Drinks/Week Comments Yes 0 (1 standard drink = 0.6 oz pure alcohol) moderate - 3 beers / wine weekly PHQ-2 Answer Date Recorded PHQ-2 TOTAL SCORE 0 08/01/2024 Social Connections Answer Date Recorded Do you often feel lonely or isolated from those around you? 0 07/02/2024 Financial Resource Strain Answer Date R ecorded Difficulty of Paying Living Expenses 3 07/02/2024 Difficulty of Paying Living Expenses Not on file 07/02/2024 Food Insecurity Answer Date Recorded Do you worry your food will run out before you are able to buy more? 1 07/02/2024 Transportation Needs Answer Date Record ed Does lack of transportation keep you from medica l appointments? 1 07/02/2024 Does lack of transportation keep you from work, meetings or getting things that you need? 1 07/02/2024 Housing Stability Answer Date Recorded What is your housing situation today? 1 07/02/2024 Utilities Answer Date Recorded Do you have trouble paying f or utilities (for example, heat, electricity, water, phone)? 1 07/02/2024 Sex and Gender Information Value Date Recorded Sex Assigned at Not on file Legal Sex Male 7:32 AM DIRECTOR UNDERWRITER SALES Gender Identity Not on file Sexual Orientation Not on file Obstetrics History Last Filed Vital Signs Vital Sign Reading Time Taken Comments Blood Pressure 127/70 11/13/2024 11:00 AM CDT Pulse 71 11/13/2024 11:00 AM CDT Temperature 36.4 C (97.5 F) 11/13/2024 10:31 AM CDT Respiratory Rate 16 11/13/2024 11:15 AM CDT Oxygen Saturation 96% 11/13/2024 11:00 AM CDT Inhaled Oxygen Concentration - - Weight 64 kg (141 lb 3.2 oz) 11/05/2024 1:24 PM CDT Height 164.3 cm (5' 4.69) 08/01/2024 11:[address] Body Mass Index 23.73 08/01/2024 11:13 AM DIRECTOR UNDERWRITER SALES Plan of Treatment Upcoming Encounters Date Type Department Care Team (Late st Contact Info) Description 03/13/2025 Cardiac Device Check [facility] [place] [phone] Health Maintenance Due Date Last Done Comments Pneumococcal series for age 50+ (2 of 2 - PPSV23) 10/28/2014 09/02/2014 Tetanus booster 08/29/2022 08/29/2012, 01/29/1991 COVID-19 vaccine series ( season) 2025 07/23/2024 Influenza Vaccine (#1) 2025 , 06/15/2004 BMI (ht and wt on same day) for age 18+ 08/01/2025 08/01/2024 Depression screening for age 12+ 08/01/2025 08/01/2024, 08/01/2024 Medicare Wellness for age 65+ 08/02/2025 08/01/2024 Zoster (shingles) series for age 50+ Completed 04/29/2019, 02/26/2019 RSV vaccine for adults or Completed 06/24/2023 Hepatitis B series for 19+ Aged Out N o longer eligible based on patient's age to complete this topic Insurance [id number] [place] [id number] MEDICARE PART A HB ONLY MEDICARE ADVANTAGE [place] [id number] Advance Directives Documents on File Type Date Recorded Patient Inspector Technician Expl anation Power of Customer Agent 05/28/2011 05/28/2011 * Full Code (Latest Code Status on File) Date Activated Date Inactivated Comments 11/13/2024 8:45 AM 11/13/2024 1:47 PM Question Answer Comments Code Status Discussion: Unable to Assess Preferences, Provider to review later Care Teams Robotics Engineer Relationship Specialty Start Date End Date Kang Gutierrez DO [address] [place] [id number] PCP - General Family Practice 07/02/24
--- NOTE | 2025-03-04 13:16 | CRLHL7_ITS ---
For Patients: As a result of the Cures Act, medical imaging exams and procedure reports are released immediately into your electronic medical record. You may view this report before your referring provider. If you have questions, please contact your health care provider. INDICATION: : Weakness COMPARISON: CT abdomen/pelvis on August 24, 2024 TECHNIQUE: Two view(s) of the chest FINDINGS: Left chest wall dual lead pacemaker with lead tips projecting over the expected position of the right atrial appendage and right ventricular apex. The cardiomediastinal silhouette and pulmonary vasculature are unremarkable. There is no focal airspace consolidation, pleural effusion, or pneumothorax. No displaced fractures. Degenerative changes of the spine. IMPRESSION: No acute cardiopulmonary process. Dictated by Valente Horne MD @ 03/04/2025 2:40:47 PM (Electronically Signed)
--- NOTE | 2025-03-04 13:18 | ED.GENADULT ---
HPI - General Adult General Chief complaint: Weakness Stated complaint: back pain, feels like has low sodium Time Seen by Provider: 03/04/25 13:04 Source: patient Mode of arrival: ambulatory Limitations: no limitations History of Present Illness HPI narrative: 84-year-old male presenting today with weakness. States that he feels no strength in his whole body, has felt this way for about 4 days. Denies fevers or chills. No changes in his appetite. He states that he has been battling constipation for quite some time, this is unchanged he takes Linzess 1st thing in the morning. He states the last night he had to urinate once every hour. Denies dysuria or hematuria. Denies vomiting. States that he has been battling chronic nausea since last June, this is unchanged. Denies chest pain or shortness of breath, however dorsal is central upper back pain. This got better after some massaging, but came back shortly afterwards. No abdominal pain. No sick contacts. No significant cough. Patient states that this has happened to him in the past and he was found to have a very low sodium. He is concerned that this is the issue again. Related Data Home Medications ?Medication ?Instructions ?Recorded ?Confirmed amlodipine 5 mg tablet 5 mg PO DAILY 06/30/24 03/04/25 aspirin 81 mg capsule 81 mg PO DAILY 06/30/24 03/04/25 losartan 100 mg tablet (Cozaar) 100 mg PO DAILY 06/30/24 03/04/25 lovastatin 20 mg tablet 20 mg PO DAILY 06/30/24 03/04/25 polyethylene glycol 3350 17 g PO 08/24/24 gram/dose oral powder travoprost 0.004 % eye drops drp ophthalmic (eye) 08/24/24 gabapentin 100 mg capsule 100 mg PO QID 03/04/25 03/04/25 linaclotide 145 mcg capsule 145 mcg PO QAM 03/04/25 03/04/25 (Linzess) nitroglycerin 0.4 mg sublingual mg sublingual 03/04/25 tablet sennosides 8.6 mg tablet (senna) 8.6 mg PO BID 03/04/25 03/04/25 Allergies Allergy/AdvReac Type Severity Reaction Status Date / Time latex Allergy rash Verified 03/04/25 11:41 Review of Systems Status of ROS: Reports: 10 or more systems reviewed and unremarkable except as noted in History and below [facility] Medical History Pacemaker ?Z95.0 - Presence of cardiac pacemaker (ICD-10) Surgical History H/O right coronary artery stent placement ?Z95.5 - Presence of coronary angioplasty implant and graft (ICD-10) Social History Smoking Status: Never smoker Do you use any of these nicotine containing products: None How often do you have a drink containing alcohol: never How often do you have six or more drinks on one occasion: Never AUDIT-C Alcohol total score: 0 Non-prescribed substance use: denies use Exam Narrative: Exam Narrative: Well-nourished well-developed patient in no acute distress. Alert and oriented. Answers questions appropriately. Mood and affect are appropriate. Thoughts are goal oriented and rational. No tangential or magical thinking noted. Patient speaks in full sentences without needing to catch his breath. HEENT: Normocephalic atraumatic. Pupils are equally round reactive to light. Extraocular muscles are intact. Conjunctivae are moist without any icterus noted. Moist mucous membranes. Posterior pharynx is normal. Neck is supple without masses. Cardiovascular: Heart is regular rate and rhythm S1 and S2 are present without any murmurs. Lungs: Clear to auscultation bilaterally no wheezes rhonchi or rales are appreciated. Patient takes deep breaths without any discomfort. Abdomen: Soft and nontender nondistended with normal bowel sounds. Extremities: Bilateral lower extremities show trace pitting edema bilaterally, left worse than the right. Skin: Well perfused without any obvious rashes. Const: Vital Signs, click to edit/add: Vital Signs - 24 hr 03/04/25 11:35 03/04/25 13:16 03/04/25 13:46 Temperature 97.5 F L Pulse Rate 72 Pulse Rate [Right Pulse Oximeter] 79 Respiratory Rate 18 18 Blood Pressure Blood Pressure [Le ft Upper Arm] 152/88 H Pulse Oximetry 96 97 96 Oxygen Delivery Me thod Room Air Room Air 03/04/25 13:48 03/04/25 14:52 03/04/25 14:53 Temperature Pulse Rate 79 74 72 Pulse Rate [Right Pulse Oximeter] Respiratory Rate 14 11 L 13 Blood Pressure 145/75 H 140/74 H Blood Pressure [Le ft Upper Arm] Pulse Oximetry 97 96 97 Oxygen Delivery Me thod 03/04/25 15:00 03/04/25 15:02 Temperature Pulse Rate 78 71 Pulse Rate [Right Pulse Oximeter] Respiratory Rate 21 16 Blood Pressure 141/81 H Blood Pressure [Le ft Upper Arm] Pulse Oximetry 98 98 Oxygen Delivery Nv thod Room Air Course Course ED Course: EKG, read by me, shows an AV dual paced rhythm, pulse 93. CBC is unremarkable. D-dimers normal. Sodium is low at 128. Remainder of chemistries are fairly unremarkable. LFTs are unremarkable. Normal CRP. UA has trace blood and trace ketones. Negative mono. Fluid/COVID negative. Normal troponin. Chest x-ray, read by me, does not show any acute pathology. At this time we did go ahead and start a L of normal saline over an hour. Vital Signs Vital signs: Initial Vital Signs Temperature 97.5 F L 03/04/25 11:35 Temperature Source Temporal Artery Scan 03/04/25 11:35 Pulse Rate 79 03/04/25 11:35 Pulse Rhythm Regular 03/04/25 11:35 Pulse Strength 3+ Normal 03/04/25 11:35 Respiratory Rate 18 03/04/25 11:35 Blood Pressure 152/88 H 03/04/25 11:35 Blood Pressure Mean 109 H 03/04/25 11:35 Blood Pressure Position Sitting 03/04/25 11:35 Pulse Oximetry 96 03/04/25 11:35 Oxygen Delivery Method Room Air 03/04/25 11:35 Vital Signs Temperature 97.5 F L 03/04/25 11:35 Pulse Rate 79 03/04/25 11:35 Respiratory Rate 18 03/04/25 11:35 Blood Pressure 152/88 H 03/04/25 11:35 Pulse Oximetry 96 03/04/25 11:35 Oxygen Delivery Method Room Air 03/04/25 11:35 Temperature 97.5 F L 03/04/25 11:35 Pulse Rate 71 03/04/25 15:02 Respiratory Rate 16 03/04/25 15:02 Blood Pressure 141/81 H 03/04/25 15:02 Pulse Oximetry 98 03/04/25 15:02 Oxygen Delivery Method Room Air 03/04/25 15:00 Medications Administered Medications: Generic Name Dose Route Start Last Admin Trade Name Freq PRN Reason Stop Dose Admin Sodium Chloride 1,000 mls @ 1,000 mls/hr 03/04/25 14:45 03/04/25 14:54 0.9 % Sodium Chloride 1000 Ml IV 03/04/25 15:44 1,000 mls/hr .Q1H RODNEY Administration Medical Decision Making MDM Narrative Medical decision making narrative: 84-year-old male with subjective weakness for 4 days, hyponatremia. Recommend follow-up with his primary care provider this week, with repeat sodium level check and an overall wellness recheck. Lab Data Lab results reviewed: Yes I reviewed the patient's lab results Labs: Lab Results 03/04/25 03/04/25 Range/Units 13:17 13:40 WBC 4.95 (4.50-11.00) K/uL RBC 4.33 (4.30-5.90) m/uL Hgb 14.1 (13.5-17.5) gm/dL Hct 40.4 (37.0-53.0) % MCV 93 (80-100) fL MCH 33 (26-34) pg MCHC 35 (32-36) gm/dL RDW Coeff of Swapna 12.0 (11.5-15.5) % Plt Count 269 (140-440) K/uL Neut % (Auto) 67.7 (42.0-72.0) % Lymph % (Auto) 16.8 L (20-44) % [place] % (Auto) 10.1 (0.0-11.0) % Eos % (Auto) 4.8 (0.0-7.0) % Baso % (Auto) 0.6 (0.0-3.0) % Neut # (Auto) 3.35 (1.7-7.0) K/uL Lymph # (Auto) 0.80 L (0.90-2.90) K/uL [place] # (Auto) 0.50 (0.00-0.90) K/UL Eos # (Auto) 0.24 (0.00-0.50) K/uL Baso # (Auto) 0.03 (0.00-0.30) K/uL Abs Immat Gran (auto) 0.00 (0.00-0.30) K/uL Imm/Tot Granulo (auto) 0.0 % D-Dimer Quant (PE/DVT) 0.30 (0.00-0.50) ug/ml Sodium 128 L (135-149) mmol/L Potassium 4.0 (3.6-5.1) mmol/L Chloride 95 L (96-114) mmol/L Carbon Dioxide 26 (20-32) mmol/L Anion Gap 7 (7-15) mEq/L BUN 8 (7-30) mg/dL Creatinine 0.6 (0.5-1.5) mg/dL Estimated Creat Clear 46.87 Estimated GFR 96 ml/min Glucose 107 (60-115) mg/dL Lactate 0.9 (0.5-1.9) mmol/L Calcium 9.7 (8.4-10.6) mg/dL Magnesium 2.1 (1.5-2.6) mg/dL Total Bilirubin 0.7 (0.1-1.5) mg/dL Direct Bilirubin 0.1 (0.0-0.5) mg/dL AST 37 H (12-35) U/L ALT 28 (4-50) U/L Alkaline Phosphatase 66 (40-150) U/L Troponin I 0.01 (0.01-0.04) ng/mL C-Reactive Protein < 0.5 L (0.5-1.0) mg/dL Total Protein 7.5 (6.0-8.3) g/dL Albumin 4.5 (3.3-5.0) g/dL Urine Color Yellow (Yellow) Urine Appearance Slightly Cloudy A (Clear) Urine pH 8.5 (5.0-8.5) Ur Specific [place] 1.015 (1.000-1.030) Urine Protein Negative (Negative) Urine Glucose (UA) Negative (Negative) Urine Ketones Trace A (Negative) Urine Blood Trace-intact A (Negative) Urine Nitrite Negative (Negative) Urine Bilirubin Negative (Negative) Urine Urobilinogen 0.2 (0.2-1.0) Ur Leukocyte Esterase Negative (Negative) Urine RBC 0-2 (0-2) Urine WBC 0-2 (0-5) Ur Squamous Epith Cells None (None-Few) Urine Bacteria None (None) SARS-CoV-2 (PCR) Negative SARS-CoV-2 (Negative) Monoscreen Negative (Negative) Influenza Type A (PCR) Negative PCR FLU A (Negative) Influenza Type B (PCR) Negative PCR FLU B (Negative) Imaging Data Chest x-ray: Attestation: I have reviewed the pertinent imaging results. Radiologist's impression: TECHNIQUE: Two view(s) of the chest FINDINGS: Left chest wall dual lead pacemaker with lead tips projecting over the expected position of the right atrial appendage and right ventricular apex. The cardiomediastinal silhouette and pulmonary vasculature are unremarkable. There is no focal airspace consolidation, pleural effusion, or pneumothorax. No displaced fractures. Degenerative changes of the spine. IMPRESSION: No acute cardiopulmonary process. ECG Data Attestation: I personally reviewed and interpreted this ECG as follows: Discharge Plan Discharge Clinical Impression: Weakness, Hyponatremia Patient Disposition: Home, Self-Care Condition: Stable Additional Instructions: I do recommend a follow-up with your primary care provider in the next 2-3 days to have a repeat sodium check and to have a repeat wellness check to make sure that you are feeling better. If you begin to feel worse, develop vomiting or fever, you should return to the emergency department. Prescriptions: No Action sennosides [senna] 8.6 mg tablet 8.6 mg PO BID nitroglycerin 0.4 mg tablet, sublingual sublingual gabapentin 100 mg capsule 100 mg PO QID Linzess 145 mcg capsule 145 mcg PO QAM aspirin 81 mg capsule 81 mg PO DAILY lovastatin 20 mg tablet 20 mg PO DAILY losartan [Cozaar] 100 mg tablet 100 mg PO DAILY amlodipine 5 mg tablet 5 mg PO DAILY travoprost 0.004 % drops ophthalmic (eye) polyethylene glycol 3350 17 gram/dose powder PO Follow Up/Referrals: NASRIN BUCKLEY DO [Primary Care Provider, Family Practice] Stand Alone Forms: [facility] Info Inst[facility]
[2025-03-04 13:52] LABS: Lactate* 0.9 mmol/L (0.5-1.9)
[2025-03-04 13:54] LABS: Hematocrit 40.4 % (37.0-53.0); Hemoglobin* 14.1 gm/dL (13.5-17.5); Immature Granulocytes Abs Auto 0.00 K/uL (0.00-0.30); Immature Granulocytes Pct Auto 0.0 %; Mean Corpuscular HGB Conc 35 gm/dL (32-36); Mean Corpuscular Hemoglobin 33 pg (26-34); Mean Corpuscular Volume 93 fL (80-100); RDW Coefficient of Variation % 12.0 % (11.5-15.5); Red Blood Count 4.33 m/uL (4.30-5.90); White Blood Count* 4.95 K/uL (4.50-11.00)
[2025-03-04 13:57] LABS: Lymphocytes Absolute Auto 0.80 K/uL (0.90-2.90); Slide Review Reflex No
[2025-03-04 14:07] LABS: Albumin* 4.5 g/dL (3.3-5.0); Chloride* 95 mmol/L (96-114)
[2025-03-04 14:08] LABS: Potassium* 4.0 mmol/L (3.6-5.1); Sodium* 128 mmol/L (135-149)
[2025-03-04 14:09] LABS: Mono Screen* Negative (Negative)
[2025-03-04 14:10] LABS: Blood Urea Nitrogen* 8 mg/dL (7-30); Creatinine* 0.6 mg/dL (0.5-1.5); Est. Creatinine Clearance* 46.87; Estimated Glomerular Filt Rate 96 ml/min
[2025-03-04 14:11] LABS: Alanine Aminotransferase* 28 U/L (4-50); Alkaline Phosphatase* 66 U/L (40-150); Anion Gap 7 mEq/L (7-15); Aspartate Amino Transferase* 37 U/L (12-35); Bilirubin Direct* 0.1 mg/dL (0.0-0.5); Bilirubin Total* 0.7 mg/dL (0.1-1.5); Calcium* 9.7 mg/dL (8.4-10.6); Carbon Dioxide* 26 mmol/L (20-32); Glucose* 107 mg/dL (60-115); Total Protein* 7.5 g/dL (6.0-8.3)
[2025-03-04 14:15] LABS: D Dimer Quantitative* 0.30 ug/ml (0.00-0.50)
[2025-03-04 14:29] LABS: Appearance Urine Slightly Cloudy (Clear)
[2025-03-04 14:48] LABS: PCR FLU A Negative PCR FLU A (Negative); PCR FLU B Negative PCR FLU B (Negative); SARS PCR* Negative SARS-CoV-2 (Negative)
== END 2025-03-04 15:40 | disposition home or self-care (01) ==
PROVIDERS: Emergency Provider Family Medicine; PCP Student in an Organized Health Care Education/Training Program
DX: R53.1 Weakness (principal)
CPT/HCPCS: 36415; 71046; 80048; 80076; 81001; 83605; 83735; 84484; 85025; 85379; 86140; 86308; 87086; 87631; 93005; 94761; 99284; J7030

== ENCOUNTER 2025-07-16 09:58 | Emergency (ER) | payer OTHER, SELFPAY ==
[2025-07-16] VITALS (13 sets, daily range): BP systolic 129–151; BP diastolic 69–83; PULSE 65–91; RESP 9–17; TEMP 36.7; O2SAT 96–99; BMI 21.5
--- NOTE | 2025-07-16 10:47 | CRLHL7_ITS ---
For Patients: As a result of the Century Cures Act, medical imaging exams and procedure reports are released immediately into your electronic medical record. You may view this report before your referring provider. If you have questions, please contact your health care provider. Indication: SHORT OF BREATH, WEAKNESS FOR WEEK 30 LBS LOST THIS YEAR CHRONIC NAUSEA Technique: ABDOMEN PELVIS CT WITH ISOVUE [id number] CC INTRAVENOUS CONTRAST Please note that all CT scans at this facility use dose modulation, iterative reconstruction, and/or weight-based dosing when appropriate to reduce radiation dose to as low as reasonably achievable. Comparison: 08/24/2024 Findings: Mild subsegmental scarring in both lung bases. Subpleural scarring in the right middle lobe. No pleural effusion. Sub cm cyst in the dome of the liver. No suspicious intrahepatic mass. Calcified stone in the gallbladder is unchanged. This measures 5 millimeters. No biliary obstruction. Normal pancreas. Spleen is normal. Normal adrenal glands. Kidneys are normal. Atherosclerotic changes are present in the aorta. The stomach is incompletely distended. No gastric outlet obstruction. Normal small bowel loops. The bladder is distended with curvilinear layering densities present. The prostate is enlarged with dystrophic calcifications. Normal ureters. No bowel obstruction or free air. No free fluid. Appendix normal. Postop changes to the anterior abdominal wall. No intra-abdominal or intrapelvic adenopathy. No femoral neck fracture. No intrinsic osseous lesion. Disc space narrowing and spurring L5-S1. No vertebral body compression fracture. Impression: Postop changes to the anterior abdominal wall. No evidence of recurrent abdominal wall hernia. No bowel obstruction or acute inflammation. Chronic cholelithiasis. Multiple layering calcifications within the bladder. Associated bladder distention without bladder wall thickening or hydronephrosis/hydroureter. Prostate enlargement. No evidence of pyelonephritis. Please note that all CT scans at this facility use dose modulation, iterative reconstruction, and/or weight-based dosing when appropriate to reduce radiation dose to as low as reasonably achievable. Dictated by Bryan Hernandez MD @ 07/16/2025 12:00:05 PM (Electronically Signed)
--- NOTE | 2025-07-16 10:47 | CRLHL7_ITS ---
For Patients: As a result of the Cures Act, medical imaging exams and procedure reports are released immediately into your electronic medical record. You may view this report before your referring provider. If you have questions, please contact your health care provider. INDICATION: chest pain, SOB TECHNIQUE: Chest 2 views COMPARISON: 03/04/2025 FINDINGS: Lung volumes are similar. No infiltrate. Stable mediastinum. Chronic changes to the thoracic spine without acute fracture. IMPRESSION: No acute findings. Dictated by Bryan Hernandez MD @ 07/16/2025 12:01:12 PM (Electronically Signed)
--- NOTE | 2025-07-16 10:50 | ED.GENADULT ---
HPI - General Adult General Chief complaint: Chest Pain Stated complaint: Chest tightness, short of breath Time Seen by Provider: 07/16/25 10:14 History of Present Illness HPI narrative: This 85-year-old male comes in reporting worsening shortness of breath and chest tightness over the last week. He arrives here with normal vital signs and oximetry normal at room air. He states that he gets short of breath with light exertion. He reports an instance where he walked up some steps and was unable to speak in complete sentences then to his . He also reports a 30 lb unintentional weight loss over the last year. He states that he has had various testings done and does not report any cause for this loss of weight. He states that he has a history of low sodium in the past. He is not on any new medications. He denies having any chest pain, nausea, vomiting, lightheadedness, or shortness of breath. He states that he did have an ultrasound of his gallbladder which showed 1 isolated polyp but no other findings. Related Data Home Medications ?Medication ?Instructions ?Recorded ?Confirmed amlodipine 5 mg tablet 5 mg PO DAILY 06/30/24 03/04/25 aspirin 81 mg capsule 81 mg PO DAILY 06/30/24 03/04/25 losartan 100 mg tablet (Cozaar) 100 mg PO DAILY 06/30/24 03/04/25 lovastatin 20 mg tablet 20 mg PO DAILY 06/30/24 03/04/25 polyethylene glycol 3350 17 g PO 08/24/24 gram/dose oral powder travoprost 0.004 % eye drops drp ophthalmic (eye) 08/24/24 gabapentin 100 mg capsule 100 mg PO QID 03/04/25 03/04/25 linaclotide 145 mcg capsule 145 mcg PO QAM 03/04/25 03/04/25 (Linzess) nitroglycerin 0.4 mg sublingual mg sublingual 03/04/25 tablet sennosides 8.6 mg tablet (senna) 8.6 mg PO BID 03/04/25 03/04/25 Previous Rx's ?Medication ?Instructions ?Recorded albuterol sulfate 90 mcg/actuation 2 inh inhalation Q4-6H PRN #1 ea 07/16/25 breath activated powder inhaler methylprednisolone 4 mg tablets in See Rx Instructions PO .COMPLEX 07/16/25 a dose pack (Medrol (Nathaniel)) #21 ea Allergies Allergy/AdvReac Type Severity Reaction Status Date / Time latex Allergy rash Verified 03/04/25 11:41 Review of Systems Status of ROS: Reports: 10 or more systems reviewed and unremarkable except as noted in History and below Narrative: Constitutional: No fevers. 30 lb unintentional weight loss in the past year. Eyes: No discharge. No vision changes. HENT: No congestion, no sore throat, no ear pain. Cardiovascular: No chest pain, no palpitations. Respiratory: No wheezes, no cough. Shortness of breath with exertion as described above. Gastrointestinal: No abdominal pain, no vomiting, no diarrhea. Genitourinary: No dysuria, no hematuria. Musculoskeletal: Normal range of motion. Skin: No rashes, no pruritis. Neurological: No dizziness, weakness, sensory change, speech change. Endo/Heme/Allergies: No bruising or bleeding. No polydipsia. Pysch: no suicidality, no anxiety, no insomnia. All other systems reviewed and are negative. [facility] Medical History Pacemaker ?Z95.0 - Presence of cardiac pacemaker (ICD-10) Surgical History H/O right coronary artery stent placement ?Z95.5 - Presence of coronary angioplasty implant and graft (ICD-10) Social History Smoking Status: Never smoker Do you use any of these nicotine containing products: None How often do you have a drink containing alcohol: never How often do you have six or more drinks on one occasion: Never AUDIT-C Alcohol total score: 0 Non-prescribed substance use: denies use Exam Narrative: Exam Narrative: Constitutional: Well-developed, well-nourished, no acute distress. HEENT: Normocephalic, atraumatic. Neck: Normal range of motion. Nontender. Supple. Heart: Regular. No murmurs. Normal rate. Intact distal pulses. Lungs: Clear to auscultation. No chest discomfort. No wheezes, rhonchi, or rales. Abdomen: Normal bowel sounds. Nontender. No rebound tenderness. Genitalia: Deferred. Back: No midline tenderness. Normal range of motion. Extremities: Normal range of motion. No injury. Skin: Intact. No rash. Warm. No erythema or pallor. Neurologic: No altered sensation. No weakness. Alert and oriented. Psychiatric: No suicidality. No anxiety or depression. No insomnia. Nursing notes and vitals signs are reviewed. Const: Vital Signs, click to edit/add: Vital Signs - 24 hr 07/16/25 10:10 07/16/25 10:21 07/16/25 10:30 Temperature 98.1 F Pulse Rate 72 71 Pulse Rate [Pulse Oximeter] 83 Respiratory Rate 16 15 17 Blood Pressure Blood Pressure [Le ft Upper Arm] 151/83 H Pulse Oximetry 99 98 96 Oxygen Delivery Me thod Room Air 07/16/25 10:31 07/16/25 10:32 07/16/25 10:45 Temperature Pulse Rate 70 65 74 Pulse Rate [Pulse Oximeter] Respiratory Rate 9 L 15 Blood Pressure 129/69 Blood Pressure [Le ft Upper Arm] Pulse Oximetry 96 97 99 Oxygen Delivery Me thod 07/16/25 11:00 07/16/25 11:01 07/16/25 11:15 Temperature Pulse Rate 66 67 66 Pulse Rate [Pulse Oximeter] Respiratory Rate 13 13 13 Blood Pressure 139/75 Blood Pressure [Le ft Upper Arm] Pulse Oximetry 98 98 97 Oxygen Delivery Me thod 07/16/25 11:47 07/16/25 12:00 07/16/25 12:01 Temperature Pulse Rate 70 65 Pulse Rate [Pulse Oximeter] Respiratory Rate 16 12 Blood Pressure 143/72 H Blood Pressure [Le ft Upper Arm] Pulse Oximetry 98 99 99 Oxygen Delivery Me thod 07/16/25 12:26 Temperature Pulse Rate 91 Pulse Rate [Pulse Oximeter] Respiratory Rate 13 Blood Pressure Blood Pressure [Le ft Upper Arm] Pulse Oximetry 97 Oxygen Delivery Me thod Course Vital Signs Vital signs: Initial Vital Signs Temperature 98.1 F 07/16/25 10:10 Temperature Source Temporal Artery Scan 07/16/25 10:10 Pulse Rate 83 07/16/25 10:10 Respiratory Rate 16 07/16/25 10:10 Blood Pressure 151/83 H 07/16/25 10:10 Blood Pressure Mean 105 07/16/25 10:10 Blood Pressure Position Supine 07/16/25 10:10 Pulse Oximetry 99 07/16/25 10:10 Oxygen Delivery Method Room Air 07/16/25 10:10 Vital Signs Temperature 98.1 F 07/16/25 10:10 Pulse Rate 83 07/16/25 10:10 Respiratory Rate 16 07/16/25 10:10 Blood Pressure 151/83 H 07/16/25 10:10 Pulse Oximetry 99 07/16/25 10:10 Oxygen Delivery Method Room Air 07/16/25 10:10 Temperature 98.1 F 07/16/25 10:10 Pulse Rate 91 07/16/25 12:26 Respiratory Rate 13 07/16/25 12:26 Blood Pressure 143/72 H 07/16/25 12:01 Pulse Oximetry 97 07/16/25 12:26 Oxygen Delivery Method Room Air 07/16/25 10:10 Medical Decision Making MDM Narrative Medical decision making narrative: This patient comes in reporting some tightness of breathing and shortness of breath over the past few days. His exam is rather normal and vital signs are normal. He is getting normal oximetry on room air at rest. He tells me on repeat exam that he does not always have symptoms when exerting himself. The patient reports a 30 lb weight loss over the last year that was unintentional. So I did extra workup with this in mind. All the tests essentially returned with reassuring results. His sodium is a bit low at 129 in his hemoglobin also is decreased a bit but not enough to explain these symptoms. Chest x-ray is negative and a CT scan of abdomen and pelvis is obtained which also returns with reassuring results. He does have a 5 mm nonobstructive stone in his gallbladder. Perhaps this patient is having some reactive airway symptoms occasionally. He is okay to be discharged home and continues to have normal vital signs here. I did provide a prescription for Medrol Dosepak and albuterol inhaler for symptomatic relief hopefully. I also described signs and symptoms that would indicate a need for return re-evaluation. Lab Data Labs: Lab Results 07/16/25 07/16/25 07/16/25 Range/Units 10:49 10:57 11:05 WBC 3.66 L (4.50-11.00) K/uL RBC 3.83 L (4.30-5.90) m/uL Hgb 12.7 L (13.5-17.5) gm/dL Hct 36.5 L (37.0-53.0) % MCV 95 (80-100) fL MCH 33 (26-34) pg MCHC 35 (32-36) gm/dL RDW Coeff of Swapna 12.1 (11.5-15.5) % Plt Count 262 (140-440) K/uL Neut % (Auto) 56.3 (42.0-72.0) % Lymph % (Auto) 29.0 (20-44) % [place] % (Auto) 10.1 (0.0-11.0) % Eos % (Auto) 4.1 (0.0-7.0) % Baso % (Auto) 0.5 (0.0-3.0) % Neut # (Auto) 2.10 (1.7-7.0) K/uL Lymph # (Auto) 1.10 (0.90-2.90) K/uL [place] # (Auto) 0.40 (0.00-0.90) K/UL Eos # (Auto) 0.20 (0.00-0.50) K/uL Baso # (Auto) 0.00 (0.00-0.30) K/uL Abs Immat Gran (auto) 0.00 (0.00-0.30) K/uL Imm/Tot Granulo (auto) 0.0 % ESR 6 (2-15) mm/hr D-Dimer Quant (PE/DVT) 0.61 H (0.00-0.50) ug/ml Sodium 129 L (135-149) mmol/L Potassium 3.9 (3.6-5.1) mmol/L Chloride 93 L (96-114) mmol/L Carbon Dioxide 25 (20-32) mmol/L Anion Gap 11 (7-15) mEq/L BUN 9 (7-30) mg/dL Creatinine 0.7 (0.5-1.5) mg/dL Estimated Creat Clear 44.10 Estimated GFR 91 ml/min Glucose 102 (60-115) mg/dL Hemoglobin A1c 5.4 (0-5.6) % Calcium 9.2 (8.4-10.6) mg/dL Total Bilirubin 0.7 (0.1-1.5) mg/dL Direct Bilirubin 0.2 (0.0-0.5) mg/dL AST 25 (12-35) U/L ALT 18 (4-50) U/L Alkaline Phosphatase 65 (40-150) U/L Total Protein 6.9 (6.0-8.3) g/dL Albumin 4.0 (3.3-5.0) g/dL Lipase 173 (23-300) U/L TSH 0.867 (0.270-4.20) uIU/mL POC Creatinine 0.8 (0.6-1.3) mg/dl POC Troponin I 0.02 (0.01-0.04) ng/ml Imaging Data CT scan - abdomen: Radiologist's impression: Postop changes to the anterior abdominal wall. No evidence of recurrent abdominal wall hernia. No bowel obstruction or acute inflammation. Chronic cholelithiasis. Multiple layering calcifications within the bladder. Associated bladder distention without bladder wall thickening or hydronephrosis/hydroureter. Prostate enlargement. No evidence of pyelonephritis. Chest x-ray: Radiologist's impression: No acute findings. ECG Data Attestation: I personally reviewed and interpreted this ECG as follows: Interpretation: Paced rhythm, rate 92 beats per minute. There are no specific ST or T-wave abnormalities. Discharge Plan Discharge Clinical Impression: Exertional shortness of breath Patient Disposition: Home, Self-Care Condition: Stable Additional Instructions: Take medications as prescribed and needed. Follow up with primary physician for regular checkup as scheduled or sooner if needed. Return if worsening. Prescriptions: New methylprednisolone [Medrol (Nathaniel)] 4 mg tablets,dose pack See Rx Instructions .ROUTE .COMPLEX Qty: 21 0RF Rx Instructions: orally per package directions albuterol sulfate 90 mcg/actuation aerosol powdr breath activated 2 inh inhalation Q4-6H PRNQty: 1 0RF No Action sennosides [senna] 8.6 mg tablet 8.6 mg PO BID nitroglycerin 0.4 mg tablet, sublingual sublingual gabapentin 100 mg capsule 100 mg PO QID Linzess 145 mcg capsule 145 mcg PO QAM aspirin 81 mg capsule 81 mg PO DAILY lovastatin 20 mg tablet 20 mg PO DAILY losartan [Cozaar] 100 mg tablet 100 mg PO DAILY amlodipine 5 mg tablet 5 mg PO DAILY travoprost 0.004 % drops ophthalmic (eye) polyethylene glycol 3350 17 gram/dose powder PO Follow Up/Referrals: SHAQRA,ADEI, DO [Primary Care Provider, Family Practice] Stand Alone Forms: [facility] Info Instructions
[2025-07-16 11:21] LABS: Creatinine, Point-of-Care* 0.8 mg/dl (0.6-1.3)
[2025-07-16 11:22] LABS: Hematocrit* 36.5 % (37.0-53.0); Hemoglobin* 12.7 gm/dL (13.5-17.5); Immature Granulocytes Abs Auto 0.00 K/uL (0.00-0.30); Immature Granulocytes Pct Auto 0.0 %; Lymphocytes Absolute Auto 1.10 K/uL (0.90-2.90); Mean Corpuscular HGB Conc 35 gm/dL (32-36); Mean Corpuscular Hemoglobin 33 pg (26-34); Mean Corpuscular Volume 95 fL (80-100); RDW Coefficient of Variation % 12.1 % (11.5-15.5); Red Blood Count* 3.83 m/uL (4.30-5.90); Slide Review Reflex No; White Blood Count* 3.66 K/uL (4.50-11.00)
[2025-07-16 11:34] LABS: Albumin* 4.0 g/dL (3.3-5.0); Chloride* 93 mmol/L (96-114)
[2025-07-16 11:35] LABS: Potassium* 3.9 mmol/L (3.6-5.1); Sodium* 129 mmol/L (135-149)
[2025-07-16 11:37] LABS: Blood Urea Nitrogen* 9 mg/dL (7-30); Creatinine* 0.7 mg/dL (0.5-1.5); Est. Creatinine Clearance* 44.10; Estimated Glomerular Filt Rate 91 ml/min
[2025-07-16 11:38] LABS: Alanine Aminotransferase* 18 U/L (4-50); Alkaline Phosphatase* 65 U/L (40-150); Anion Gap 11 mEq/L (7-15); Aspartate Amino Transferase* 25 U/L (12-35); Bilirubin Direct* 0.2 mg/dL (0.0-0.5); Bilirubin Total* 0.7 mg/dL (0.1-1.5); Calcium* 9.2 mg/dL (8.4-10.6); Carbon Dioxide* 25 mmol/L (20-32); Glucose* 102 mg/dL (60-115); Total Protein* 6.9 g/dL (6.0-8.3)
[2025-07-16 11:42] LABS: D Dimer Quantitative* 0.61 ug/ml (0.00-0.50)
[2025-07-16 11:42] LABS: Troponin, Point-of-Care* 0.02 ng/ml (0.01-0.04)
[2025-07-16 12:16] LABS: Erythrocyte SedimentationRate* 6 mm/hr (2-15)
== END 2025-07-16 13:21 | disposition home or self-care (01) ==
PROVIDERS: Emergency Provider Emergency Medicine Emergency Medical Services; PCP Student in an Organized Health Care Education/Training Program
DX: R06.02 Shortness of breath (principal); Z13.29 Encounter for screening for other suspected endocrine disorder
CPT/HCPCS: 36415; 71046; 74177; 80048; 80076; 82565; 83036; 83690; 84443; 84484; 85025; 85379; 85651; 93005; 99284; 99285; Q9967